=== PATIENT | male | born 1995 | race Caucasian/White ===

== ENCOUNTER 2024-03-16 19:17 | Emergency (ER) | payer BC, MEDICAID ==
[~2024-03-16] VITALS: Ht 177.8 cm; Wt 81.7 kg
[2024-03-16 19:28] VITALS: BP 140/94; PULSE 96; RESP 18; TEMP 98; O2SAT 100
[2024-03-16] MEDS ORDERED: PROP1DRO2 MT (23:27)
[2024-03-17] MEDS: TETRACAINE 0.5% OPHTH DROPS 4ML LEFTEYE ONE (00:37)
== END 2024-03-17 00:38 | disposition home or self-care (01) ==
LOC: ER 19:17
DX: H57.12 Ocular pain, left eye (principal)
CPT/HCPCS: 99282